=== PATIENT | female | born 1995 | race Caucasian/White ===

== ENCOUNTER 2020-04-21 10:40 | Inpatient (IN) | payer OTHER ==
[2020-04-21] MEDS ORDERED: TERBUTALINE 1 MG/ML VIAL SQ PRN (11:16)
[2020-04-21] MEDS ORDERED: METHYLERGONOVINE 0.2 MG/ML 1 ML AMP IM PRN (11:16)
[2020-04-21] MEDS ORDERED: CARBOPROST TROMETHAMINE 250 MCG/ML 1 ML AMP IM PRN (11:16)
[2020-04-21] MEDS ORDERED: LIDOCAINE 0.5% (PF) 5 MG/ML (50 ML SDV) SQ PRN (11:16)
[2020-04-21] MEDS ORDERED: OXYTOCIN 10 UNIT/ML 1 ML VIAL IM PRN (11:16)
[2020-04-21] MEDS ORDERED: LACTATED RINGERS 1,000 ML IV SCH (11:30)
[2020-04-21] MEDS ORDERED: OXYTOCIN 30 UNITS/500 ML NS 30 UNIT in SALINE 1 500ML.BAG IV SCH ×2 (11:30→18:45)
[2020-04-21] MEDS: CLINDAMYCIN 600 MG in DEXTROSE 5% IN WATER 50 ML IVPB SCH ×4 (12:40→20:24)
[2020-04-21 13:26] LABS: Basophils % (A) 0 %; Eosinophils # (A) 0.1 k/uL (0-0.7); Eosinophils % (A) 1 %; HCT 38.3 % (34.0-46.0); HGB 13.1 gm/dL (11.4-16.0); Lymphocytes # (A) 1.9 k/uL (1.0-4.8); Lymphocytes % (A) 11 %; MCH 32.7 pg (25.0-35.0); MCHC 34.3 g/dL (31.0-37.0); MCV 95.5 fL (80.0-100.0); Mean Platelet Volume 7.9; Monocytes # (A) 0.7 k/uL (0-1.0); Monocytes % (A) 4 %; Neutrophils % (A) 83 %; Platelet Count 266 k/uL (150-450); RBC 4.01 m/uL (3.80-5.40); RDW 12.9 % (11.5-15.5)
[2020-04-21] MEDS ORDERED: fentaNYL (PF) 50 MCG/ML 5 ML AMP ONE (16:07)
[2020-04-21] MEDS ORDERED: SODIUM CHLORIDE 0.9% 100 ML BAG ONE (16:07)
[2020-04-21] MEDS ORDERED: ROPIVACAINE 5MG/ML 20ML VIAL ONE (16:07)
--- NOTE | 2020-04-21 16:52 | P.HPOB ---
History of Present Illness H&P Date: 04/21/20 Chief Complaint: Spontaneous rupture of membranes 24-year-old presents at 39 weeks and 2 days with spontaneous rupture of membranes at 8:00 this morning. She presented on 1132 cm dilated, 90% effaced, and 0 station. She is eulalio irregularly. heart tones 135 with moderate variability and reactive. Review of Systems All systems: negative Constitutional: Denies chills, Denies fever Eyes: denies blurred vision, denies pain Ears, nose, mouth and throat: Denies headache, Denies sore throat Cardiovascular: Denies chest pain, Denies shortness of breath Respiratory: Denies cough Gastrointestinal: Denies abdominal pain, Denies diarrhea, Denies nausea, Denies vomiting Genitourinary: Denies dysuria, Denies hematuria Musculoskeletal: Denies myalgias Integumentary: Denies pruritus, Denies rash Neurological: Denies numbness, Denies weakness Psychiatric: Denies anxiety, Denies depression Endocrine: Denies fatigue, Denies weight change Past Medical History Additional Past Medical History / Comment(s): IBS, NEAR SIGHTED (GLASSES/CONTACTS). Subjective history: This is her first and she's had care with me. Her blood type is A+, amylase negative, rubella i mmune, RPR nonreactive, hepatitis B negative, toxoplasma negative, GBS positive. History of Any Multi-Drug Resistant Organisms: None Reported Past Surgical History: No Surgical Hx Reported Past Anesthesia/Blood Transfusion Reactions: No Reported Reaction Past Psychological History: Anxiety, Depression Additional Psychological History / Comment(s): SERROBRISEYDA Smoking Status: Never smoker Past Alcohol Use History: None Reported Past Drug Use History: None Reported - Past Family History Mother Family Medical History: Hypertension Father Family Medical History: Cancer Additional Family Medical History / Comment(s): ALCOHOLISM, CA OF COLON AND LIVER Medications and Allergies Home Medications Medication Instructions Recorded Confirmed Type Pnv,Calcium 72/Iron/Folic Acid 1 each PO DAILY 04/21/20 04/21/20 History [ Plus Tablet] QUEtiapine [SEROquel] 1 tablet PO WEEKLY 04/21/20 04/21/20 History Allergies Allergy/AdvReac Type Severity Reaction Status Date / Time Penicillins AdvReac Rash/Hives Verified 04/21/20 10:51 Exam Osteopathic Statement: *. No significant issues noted on an osteopathic structural exam other than those noted in the History and Physical/Consult. Vital Signs Temp Pulse Resp BP Pulse Ox 04/21/20 11:45 97.7 F 88 18 120/71 99 Intake and Output 04/21/20 04/21/20 04/21/20 06:59 14:59 22:59 Other: # Voids 2 # Bowel Movements 0 Weight 83.007 kg Heart: Regular rate and rhythm Lungs: Clear to auscultation bilaterally Abdomen: Soft, nontender Extremities: Negative Homans sign Results Result Diagrams: 04/21/20 12:15 Abnormal Lab Results - Last 24 Hours (Table) 04/21/20 Range/Units 12:15 WBC 17.0 H (3.8-10.6) k/uL Neutrophils # 14.0 H (1.3-7.7) k/uL Assessment and Plan (1) Spontaneous rupture of amniotic membranes Current Visit: Yes Status: Acute Code(s): [id number] - SNOMED Code(s): 310348423 Plan: 1. Admit to family place 2. Clindamycin for GBS prophylaxis 3. Pitocin augmentation 4. Anticipate normal vaginal delivery
[2020-04-21] MEDS ORDERED: LANOLIN CREAM 5 GM TUBE TOPICAL PRN (18:40)
[2020-04-21] MEDS ORDERED: ZOLPIDEM 5 MG TAB PO PRN (18:40)
[2020-04-21] MEDS ORDERED: BENZOCAINE/MENTHOL SPRAY 1 GM/SPRAY AEROSOL TOPICAL PRN (18:40)
[2020-04-21] MEDS ORDERED: diphenhydrAMINE 50 MG/ML 1 ML VIAL IVP PRN ×2 (18:40)
[2020-04-21] MEDS ORDERED: diphenhydrAMINE 25 MG CAP PO PRN (18:40)
[2020-04-21] MEDS ORDERED: SIMETHICONE 80 MG CHEWABLE PO PRN (18:40)
[2020-04-21] MEDS ORDERED: ACETAMINOPHEN TAB 325 MG TAB PO PRN (18:40)
[2020-04-21] MEDS ORDERED: diphenhydrAMINE 50 MG CAP PO PRN (18:40)
[2020-04-21] MEDS ORDERED: HYDROCORTISONE 2.5% RECTAL CREAM 30 GM TUBE RECTAL PRN (18:40)
--- NOTE | 2020-04-21 18:40 | P.PROBDLV ---
Vaginal Delivery Note - . Vaginal Delivery Note: 24-year-old presents at 39 weeks and 2 days with spontaneous rupture of membranes at 8:45 this morning. She presented on 1132 cm dilated, 90% effaced, and 0 station. She is eulalio irregularly. heart tones 135 with moderate variability and reactive. Clindamycin was started and then Pitocin augmentation was started. She was uncomfortable and did get an epidural. Her cervix is completely dilated at 1800. She pushed, viable female over int act perineum under epidural anesthesia at 1823. Head delivered OA, anterior shoulder delivered gentle downward guidance for by posterior shoulder and rest of body. Nose and mouth bulb suctioned, cord clamped and cut, placed on mother's abdomen. Apgars 9, 10, weight 6 lbs. 6 oz. Placenta delivered spontaneously, intact with three-vessel cord at 1825. Vagina, cervix, and perineum were inspected. First-degree midline laceration was repaired with 3-0 Vicryl. Estimated blood loss 250 mL. Mother and baby in stable condition.
[2020-04-21] MEDS: IBUPROFEN 600 MG TAB PO SCH (20:51)
[2020-04-21] MEDS: SENNOSIDES-DOCUSATE SODIUM 1 EACH TAB PO SCH (20:52)
[2020-04-22] MEDS: IBUPROFEN 600 MG TAB PO SCH ×4 (02:09→19:02)
[2020-04-22 05:26] LABS: Basophils % (A) 0 %; Eosinophils # (A) 0.1 k/uL (0-0.7); Eosinophils % (A) 1 %; HCT 37.7 % (34.0-46.0); Lymphocytes # (A) 1.9 k/uL (1.0-4.8); Lymphocytes % (A) 11 %; MCH 33.2 pg (25.0-35.0); MCHC 34.5 g/dL (31.0-37.0); MCV 96.2 fL (80.0-100.0); Mean Platelet Volume 7.7; Monocytes # (A) 0.7 k/uL (0-1.0); Monocytes % (A) 4 %; Neutrophils # (A) 14.3 k/uL (1.3-7.7); Neutrophils % (A) 83 %; Platelet Count 231 k/uL (150-450); RBC 3.92 m/uL (3.80-5.40); RDW 13.1 % (11.5-15.5); WBC 17.2 k/uL (3.8-10.6)
[2020-04-22] MEDS: SENNOSIDES-DOCUSATE SODIUM 1 EACH TAB PO SCH (07:54)
--- NOTE | 2020-04-22 08:17 | P.DS ---
Providers Date of admission: 04/21/20 11:20 Expected date of discharge: 04/22/20 Attending physician: Jane Brennan Primary care physician: Stated None - Discharge Diagnosis(es) (1) Spontaneous rupture of amniotic membranes Current Visit: Yes Status: Resolved (2) Normal vaginal delivery Current Visit: Yes Status: Acute Hospital Course: Patient presented with spontaneous rupture of membranes at 39 weeks. She had and Clindamycin for GBS prophylaxis and Pitocin augmentation. Patient underwent a normal vaginal delivery. course was uncomplicated. She denies nausea, vomiting, chest pain, shortness of breath or calf pain. Her lochia is decreasing. She'll be discharged home day #1 in stable condition to follow-up with me in 6 weeks. Plan - Discharge Summary New Discharge Prescriptions: New Ibuprofen [Motrin] 600 mg PO Q6H #30 tab No Action Pnv,Calcium 72/Iron/Folic Acid [ Plus Tablet] 1 each PO DAILY QUEtiapine [SEROquel] 1 tablet PO WEEKLY Discharge Medication List Pnv,Calcium 72/Iron/Folic Acid [ Plus Tablet] 1 each PO DAILY 04/21/20 [History] QUEtiapine [SEROquel] 1 tablet PO WEEKLY 04/21/20 [History] Ibuprofen [Motrin] 600 mg PO Q6H #30 tab 04/22/20 [Rx] Follow up Appointment(s)/Referral(s): Jane Brennan DO [Doctor of Osteopathic Medicine] - 6 Weeks Discharge Disposition: HOME SELF-CARE
[2020-04-22 08:33] VITALS: RESP 18
[2020-04-22 17:13] VITALS: BP 126/76; PULSE 71; TEMP 98.2
== END 2020-04-22 19:08 | disposition home or self-care (01) | DRG 807 ==
LOC: FBPOP 10:40 → 4FBP 11:20
PROVIDERS: ADMIT Obstetrics & Gynecology; ATTEND Obstetrics & Gynecology
PROC: 3E0R3BZ Introduction of Anesthetic Agent into Spinal Canal, Percutaneous Approach (ICD-10-PCS; principal; 2020-04-21)
PROC: 0HQ9XZZ Repair Perineum Skin, External Approach (ICD-10-PCS; principal; 2020-04-21)
PROC: 00HU33Z Insertion of Infusion Device into Spinal Canal, Percutaneous Approach (ICD-10-PCS; principal; 2020-04-21)
PROC: 10E0XZZ Delivery of Products of Conception, External Approach (ICD-10-PCS; principal; 2020-04-21)
DX: O99.824 Streptococcus B carrier state complicating childbirth (principal); Z37.0 Single live birth; O99.344 Other mental disorders complicating childbirth; F32.9 Major depressive disorder, single episode, unspecified; F41.9 Anxiety disorder, unspecified; O70.0 First degree perineal laceration during delivery; K58.9 Irritable bowel syndrome, unspecified; Z3A.39 39 weeks gestation of pregnancy; Z79.899 Other long term (current) drug therapy; Z97.3 Presence of spectacles and contact lenses; Z88.0 Allergy status to penicillin; Z80.0 Family history of malignant neoplasm of digestive organs; Z81.1 Family history of alcohol abuse and dependence; Z82.49 Family history of ischemic heart disease and other diseases of the circulatory system
CPT/HCPCS: 59025; 84112; 85025; 86850; 86900; 86901; 99213

== ENCOUNTER 2022-01-04 06:15 | Inpatient (IN) | payer BC, OTHER ==
[2022-01-04] MEDS ORDERED: TERBUTALINE 1 MG/ML VIAL SQ PRN (06:53)
[2022-01-04] MEDS ORDERED: LIDOCAINE 0.5% (PF) 5 MG/ML (50 ML SDV) SQ PRN (06:53)
[2022-01-04] MEDS: LACTATED RINGERS 1,000 ML IV SCH ×2 (06:57→19:20)
[2022-01-04] MEDS ORDERED: OXYTOCIN 30 UNITS/500 ML NS 30 UNIT in SALINE 1 500ML.BAG IV SCH ×2 (07:00→13:15)
[2022-01-04 07:26] LABS: Basophils % (A) 0 %; Eosinophils # (A) 0.2 k/uL (0-0.7); Eosinophils % (A) 1 %; HCT 37.3 % (34.0-46.0); HGB 12.9 gm/dL (11.4-16.0); Lymphocytes # (A) 2.1 k/uL (1.0-4.8); Lymphocytes % (A) 19 %; MCH 32.4 pg (25.0-35.0); MCHC 34.6 g/dL (31.0-37.0); MCV 93.8 fL (80.0-100.0); Mean Platelet Volume 8.3; Monocytes # (A) 0.4 k/uL (0-1.0); Monocytes % (A) 3 %; Neutrophils # (A) 8.3 k/uL (1.3-7.7); Neutrophils % (A) 73 %; Platelet Count 279 k/uL (150-450); RBC 3.98 m/uL (3.80-5.40); RDW 13.8 % (11.5-15.5); WBC 11.4 k/uL (3.8-10.6)
--- NOTE | 2022-01-04 07:40 | P.HPOB ---
History of Present Illness H&P Date: 01/04/22 Chief Complaint: induction of labor 26 year old presents at 39 weeks 2 days for induction of labor. Her cervix is 1-2/70/-2. she is eulalio irregularly. heart tones 140 with moderate variability and reactive. Review of Systems All systems: negative Constitutional: Denies chills, Denies fever Eyes: denies blurred vision, denies pain Ears, nose, mouth and throat: Denies headache, Denies sore throat Cardiovascular: Denies chest pain, Denies shortness of breath Respiratory: Denies cough Gastrointestinal: Denies abdominal pain, Denies diarrhea, Denies nausea, Denies vomiting Genitourinary: Denies dysuria, Denies hematuria Musculoskeletal: Denies myalgias Integumentary: Denies pruritus, Denies rash Neurological: Denies numbness, Denies weakness Psychiatric: Denies anxiety, Denies depression Endocrine: Denies fatigue, Denies weight change Past Medical History Additional Past Medical History / Comment(s): IBS, NEAR SIGHTED (GLASSES/CONTACTS). Obstetrical history: First was a vaginal delivery. This is her second and she's had care with me. Her blood type is A+, abs negative, rubella immune, RPR nonreactive, hepatitis B negative, toxoplasma negative, GBS neg. History of Any Multi-Drug Resistant Organisms: None Reported Past Surgical History: No Surgical Hx Reported Past Anesthesia/Blood Transfusion Reactions: No Reported Reaction Past Psychological History: Anxiety, Depression Additional Psychological History / Comment(s): SERROQUEL Smoking Status: Never smoker Past Alcohol Use History: None Reported Past Drug Use History: None Reported - Past Family History Mother Family Medical History: Hypertension Father Family Medical History: Cancer Additional Family Medical History / Comment(s): ALCOHOLISM, CA OF COLON AND LIVE R Medications and Allergies Home Medications Medication Instructions Recorded Confirmed Type Vit No.180/Iron/Folic 1 each PO DAILY 04/21/20 01/04/22 History [ Plus Tablet] Sertraline [Zoloft] 1 tab PO DAILY 01/04/22 01/04/22 History buPROPion XL [Wellbutrin XL] 1 tab PO DAILY 01/04/22 01/04/22 History Allergies Allergy/AdvReac Type Severity Reaction Status Date / Time Penicillins AdvReac Rash/Hives Verified 04/21/20 10:51 Exam Osteopathic Statement: *. No significant issues noted on an osteopathic structural exam other than those noted in the History and Physical/Consult. Intake and Output 01/03/22 01/04/22 01/04/22 22:59 06:59 14:59 Other: Weight 87.09 kg Heart: Regular rate and rhythm Lungs: Clear to auscultation bilaterally Abdomen: Soft, nontender Extremities: Negative Homans sign Results Result Diagrams: 01/04/22 06:50 Abnormal Lab Results - Last 24 Hours (Table) 01/04/22 Range/Units 06:50 WBC 11.4 H (3.8-10.6) k/uL Neutrophils # 8.3 H (1.3-7.7) k/uL Assessment and Plan (1) Encounter for induction of labor Current Visit: Yes Status: Acute Code(s): Z34.90 - ENCNTR FOR SUPRVSN OF NORMAL , UNSP, UNSP TRIMESTER SNOMED Code(s): 699852510 (2) Two vessel umbilical cord in yu , antepartum Current Visit: Yes Status: Acute Code(s): O09.899 - SUPERVISION OF OTHER HIGH RISK PREGNANCIES, UNSP TRIMESTER SNOMED Code(s): 464805497 Plan: 1. induction of labor with amniotomy and pitocin 2. anticipate normal vaginal delivery
[2022-01-04] MEDS ORDERED: SODIUM CHLORIDE 0.9% 100 ML BAG ONE (11:41)
[2022-01-04] MEDS ORDERED: fentaNYL (PF) 50 MCG/ML 5 ML AMP ONE (11:41)
[2022-01-04] MEDS ORDERED: ROPIVACAINE 5 MG/ML 20 ML AMPULE ONE (11:41)
--- NOTE | 2022-01-04 13:00 | P.PROBDLV ---
Vaginal Delivery Note - . Vaginal Delivery Note: 26 year old presents at 39 weeks 2 days for induction of labor. Her cervix is 1-2/70/-2. she is eulalio irregularly. heart tones 140 with moderate variability and reactive. Pitocin started and amniotomy performed at 7:31 AM clear fluid noted. When she was uncomfortable patient did get an epidural. Her cervix was completely dilated at 1242. She pushed and delivered a viable female infant over intact perineum under epidural anesthesia at 12:49 pm. Head delivered OA, anterior shoulder delivered gentle downward guidance with posterior shoulder and rest of body. Nose and mouth bulb suctioned, cord clamped and cut, placed mother's abdomen. Apgars 9, 9, weight 6 pounds 10.9 ounces. Placenta delivered spontaneously, intact with three-vessel cord at 1251. Vagina, cervix, perineum inspected. No lacerations noted. Estimated blood loss 50 mL. Mother and baby in stable condition.
[2022-01-04] MEDS ORDERED: HYDROCORTISONE 2.5% RECTAL CREAM 30 GM TUBE RECTAL PRN (13:01)
[2022-01-04] MEDS ORDERED: diphenhydrAMINE 50 MG/ML 1 ML VIAL IVP PRN ×2 (13:01)
[2022-01-04] MEDS ORDERED: BENZOCAINE/MENTHOL SPRAY 1 GM/SPRAY AEROSOL TOPICAL PRN (13:01)
[2022-01-04] MEDS ORDERED: diphenhydrAMINE 25 MG CAP PO PRN (13:01)
[2022-01-04] MEDS ORDERED: SIMETHICONE 80 MG CHEWABLE PO PRN (13:01)
[2022-01-04] MEDS ORDERED: LANOLIN CREAM 5 GM TUBE TOPICAL PRN (13:01)
[2022-01-04] MEDS ORDERED: ZOLPIDEM 5 MG TAB PO PRN (13:01)
[2022-01-04] MEDS ORDERED: diphenhydrAMINE 50 MG CAP PO PRN (13:01)
[2022-01-04] MEDS: buPROPion XL 150 MG TAB.ER.24H PO SCH (14:37)
[2022-01-04] MEDS: IBUPROFEN 600 MG TAB PO PRN (18:53)
[2022-01-04] MEDS: SENNOSIDES-DOCUSATE SODIUM 1 EACH TAB PO SCH (20:08)
[2022-01-04] MEDS: SERTRALINE 100 MG TAB PO SCH (22:16)
[2022-01-04] MEDS: ACETAMINOPHEN TAB 325 MG TAB PO PRN (22:17)
[2022-01-05] MEDS: LACTATED RINGERS 1,000 ML IV SCH ×2 (00:49→09:29)
[2022-01-05] MEDS: IBUPROFEN 600 MG TAB PO PRN ×2 (01:06→12:47)
[2022-01-05] MEDS: ACETAMINOPHEN TAB 325 MG TAB PO PRN ×2 (04:02→08:08)
[2022-01-05 06:41] LABS: Basophils % (A) 0 %; Eosinophils # (A) 0.2 k/uL (0-0.7); Eosinophils % (A) 2 %; HCT 38.2 % (34.0-46.0); HGB 13.2 gm/dL (11.4-16.0); Lymphocytes # (A) 2.2 k/uL (1.0-4.8); Lymphocytes % (A) 19 %; MCH 32.8 pg (25.0-35.0); MCHC 34.4 g/dL (31.0-37.0); MCV 95.4 fL (80.0-100.0); Mean Platelet Volume 7.9; Monocytes # (A) 0.4 k/uL (0-1.0); Monocytes % (A) 4 %; Neutrophils # (A) 8.7 k/uL (1.3-7.7); Neutrophils % (A) 74 %; Platelet Count 247 k/uL (150-450); RBC 4.01 m/uL (3.80-5.40); RDW 13.5 % (11.5-15.5); WBC 11.7 k/uL (3.8-10.6)
--- NOTE | 2022-01-05 08:00 | P.DS ---
Providers Date of admission: 01/04/22 06:39 Expected date of discharge: 01/05/22 Attending physician: Jane Brennan Primary care physician: Stated None - Discharge Diagnosis(es) (1) Encounter for induction of labor Current Visit: Yes Status: Resolved (2) Two vessel umbilical cord in yu , antepartum Current Visit: Yes Status: Resolved (3) Normal vaginal delivery Current Visit: No Status: Acute Hospital Course: Patient presented for induction of labor. She underwent a normal vaginal delivery. course was uncomplicated. She denies nausea, vomiting, chest pain, shortness of breath or any calf pain. Patient will be discharged home day #1 in stable condition to follow-up with me in 6 weeks. Plan - Discharge Summary New Discharge Prescriptions: New Ibuprofen [Motrin] 600 mg PO Q6HR PRN #30 tab PRN Reason: Mild Pain (Scale 1 To 3) No Action Vit No.180/Iron/Folic [ Plus Tablet] 1 each PO DAILY buPROPion XL [Wellbutrin XL] 1 tab PO DAILY Sertraline [Zoloft] 1 tab PO DAILY Discharge Medication List Vit No.180/Iron/Folic [ Plus Tablet] 1 each PO DAILY 04/21/20 [History] Sertraline [Zoloft] 1 tab PO DAILY 01/04/22 [History] buPROPion XL [Wellbutrin XL] 1 tab PO DAILY 01/04/22 [History] Ibuprofen [Motrin] 600 mg PO Q6HR PRN #30 tab 01/05/22 [Rx] Follow up Appointment(s)/Referral(s): Jane Brennan DO [Doctor of Osteopathic Medicine] - 6 Weeks Discharge Disposition: HOME SELF-CARE
[2022-01-05] MEDS: SENNOSIDES-DOCUSATE SODIUM 1 EACH TAB PO SCH (08:08)
[2022-01-05] MEDS: buPROPion XL 150 MG TAB.ER.24H PO SCH (08:10)
[2022-01-05 09:28] VITALS: PULSE 77
[2022-01-05] MEDS: SERTRALINE 100 MG TAB PO SCH (09:30)
[2022-01-05 13:53] VITALS: BP 128/84; RESP 17; TEMP 98.2
== END 2022-01-05 13:56 | disposition home or self-care (01) | DRG 807 ==
LOC: 4FBP 06:39
PROVIDERS: ADMIT Obstetrics & Gynecology; ATTEND Obstetrics & Gynecology
PROC: 10E0XZZ Delivery of Products of Conception, External Approach (ICD-10-PCS; principal; 2022-01-04)
PROC: 4A0HXCZ Measurement of Products of Conception, Cardiac Rate, External Approach (ICD-10-PCS; 2022-01-04)
PROC: 10907ZC Drainage of Amniotic Fluid, Therapeutic from Products of Conception, Via Natural or Artificial Opening (ICD-10-PCS; 2022-01-04)
PROC: 3E033VJ Introduction of Other Hormone into Peripheral Vein, Percutaneous Approach (ICD-10-PCS; 2022-01-04)
DX: O69.89X0 Labor and delivery complicated by other cord complications, not applicable or unspecified (principal); Z37.0 Single live birth; O99.62 Diseases of the digestive system complicating childbirth; K58.9 Irritable bowel syndrome, unspecified; F32.A Depression, unspecified; O99.344 Other mental disorders complicating childbirth; F41.9 Anxiety disorder, unspecified; Z3A.39 39 weeks gestation of pregnancy; Z88.0 Allergy status to penicillin
CPT/HCPCS: 85025; 86850; 86900; 86901

== ENCOUNTER 2024-02-18 10:52 | Outpatient (CLI) | payer BC ==
[2024-02-18 14:34] VITALS: BP 129/68; PULSE 95; RESP 16; TEMP 96.5
--- NOTE | 2024-03-09 15:53 | P.MSEPDOC ---
Presenting Problems - Arrival Data Date of Arrival on Unit: 02/18/24 Time of Arrival on Unit: 10:52 Mode of Transport: Ambulatory - Complaint OB-Reason for Admission/Chief Complaint: Rule Out SROM Medical History - Information : 3 Para: 2 Term: 2 : 0 Abortions: Spontaneous or Elective: 0 Number of Living Children: 2 - Gestational Age Gestational Age by TANI (wks/days): 38 Weeks and 1 Days Review of Systems - Review of Systems Constitutional: No problems Breast: No problems ENT: No problems Cardiovascular: No problems Respiratory: No problems Gastrointestinal: No problems Genitourinary: No problems Musculoskeletal: No problems Neurological: No problems Skin: No problems Vital Signs - Temperature Temperature: 96.5 F Temperature Source: Temporal Artery Scan - Pulse Right Sitting Pulse Rate: 95 Pulse Assessment Method: Automatic Cuff - Respirations Respiratory Rate: 16 Oxygen Delivery Method: Room Air O2 Sat by Pulse Oximetry: 98 - Blood Pressure Right Arm Blood Pressure: 129/68 Blood Pressure Mean: 88 Blood Pressure Source: Automatic Cuff Medical Screen Scoring - Cervical Exam Dilation (cm): 1.5 Effacement (%): 70 Station: -2 Membranes: Intact - Uterine Contractions Frequency From (mins): 1 Frequency To (mins): 5 Duration From (seconds): 40 Duration To (seconds): 70 Intensity: Mild Resting: Soft to palpation - Assessment - Baby A Baseline FHR: 130 Heart Rate - NICHD Category: Category I (Normal) NST: Reactive Physician Notification - Physician Notified Physician Notified Date: 02/18/24 Physician Notified Time: 13:48 Physician: Amber Alonzo Order Received: Yes (d/c home) Maternal Triage Index - Non-Urgent/Priority 4 Non-Urgent Priority 4: Yes Criteria Met for Priority 4: reactive nst with occasional variable, regular mild contractions, vag exam 1.5cm/70%/-2, amnisure negative Disposition - Disposition OB Disposition: Discharge to home Discharge Date: 02/18/24 Discharge Time: 13:58 I agree with the RN Medical Screening Exam: Yes Physician's MSE Comment: I have neither seen nor examined the patient Case reviewed; plan agreed upon as documented in EMR&OBIX.: Yes Diagnosis: FALSE LABOR AT OR AFTER 37 COMPLETED WEEKS OF GESTATION
== END 2024-02-18 13:58 | disposition home or self-care (01) ==
LOC: FBPOP 10:52
PROVIDERS: ATTEND Obstetrics & Gynecology
DX: O47.1 False labor at or after 37 completed weeks of gestation (principal); Z3A.38 38 weeks gestation of pregnancy; Z88.0 Allergy status to penicillin
CPT/HCPCS: 59025; 84112; 99213

== ENCOUNTER 2024-02-24 06:05 | Inpatient (IN) | payer BC ==
[2024-02-24] MEDS ORDERED: TERBUTALINE 1 MG/ML VIAL SQ PRN (06:23)
[2024-02-24] MEDS ORDERED: TRANEXAMIC 1,000 MG/100ML-NACL 1,000 MG in EMPTY BAG 1 BAG IV PRN (06:23)
[2024-02-24] MEDS ORDERED: CARBOPROST TROMETHAMINE 250 MCG/ML 1 ML AMP IM PRN (06:23)
[2024-02-24] MEDS ORDERED: OXYTOCIN 10 UNIT/ML 1 ML VIAL IM PRN (06:23)
[2024-02-24] MEDS ORDERED: METHYLERGONOVINE 0.2 MG/ML 1 ML AMP IM PRN (06:23)
[2024-02-24] MEDS ORDERED: miSOPROStoL 200 MCG TAB RECTAL PRN (06:23)
[2024-02-24] MEDS ORDERED: LIDOCAINE 0.5% (PF) 5 MG/ML (50 ML SDV) SQ PRN (06:23)
[2024-02-24] MEDS ORDERED: miSOPROStoL 200 MCG TAB PO PRN (06:23)
[2024-02-24] MEDS: LACTATED RINGERS 1,000 ML IV SCH (06:44)
[2024-02-24] MEDS: OXYTOCIN 30 UNITS/500 ML NS 30 UNIT in SALINE 1 500ML.BAG IV SCH (06:45)
[2024-02-24 07:21] LABS: Basophils % (A) 0 %; Eosinophils # (A) 0.1 k/uL (0-0.7); Eosinophils % (A) 1 %; HCT 36.7 % (34.0-46.0); HGB 12.9 gm/dL (11.4-16.0); Lymphocytes # (A) 2.1 k/uL (1.0-4.8); Lymphocytes % (A) 18 %; MCH 33.2 pg (25.0-35.0); MCHC 35.2 g/dL (31.0-37.0); MCV 94.3 fL (80.0-100.0); Mean Platelet Volume 7.8; Monocytes # (A) 0.4 k/uL (0-1.0); Monocytes % (A) 3 %; Neutrophils # (A) 9.2 k/uL (1.3-7.7); Neutrophils % (A) 76 %; Platelet Count 298 k/uL (150-450); RBC 3.89 m/uL (3.80-5.40); RDW 13.8 % (11.5-15.5); WBC 12.1 k/uL (3.8-10.6)
[2024-02-24] MEDS ORDERED: SODIUM CHLORIDE 0.9% 250 ML BAG ONE (09:30)
[2024-02-24] MEDS ORDERED: fentaNYL (PF) 50 MCG/ML 5 ML AMP ONE (09:30)
[2024-02-24] MEDS ORDERED: ROPIVACAINE 5 MG/ML 30 ML VIAL ONE (09:30)
[2024-02-24] MEDS ORDERED: ZOLPIDEM 5 MG TAB PO PRN (12:12)
[2024-02-24] MEDS ORDERED: SIMETHICONE 80 MG CHEWABLE PO PRN (12:12)
[2024-02-24] MEDS ORDERED: diphenhydrAMINE 50 MG CAP PO PRN (12:12)
[2024-02-24] MEDS ORDERED: diphenhydrAMINE 25 MG CAP PO PRN (12:12)
[2024-02-24] MEDS ORDERED: BENZOCAINE/MENTHOL SPRAY 1 GM/SPRAY AEROSOL TOPICAL PRN (12:12)
[2024-02-24] MEDS ORDERED: LANOLIN CREAM 1 GM TUBE TOPICAL PRN (12:12)
--- NOTE | 2024-02-24 17:03 | P.HPOB ---
History of Present Illness H&P Date: 02/24/24 Chief Complaint: induction of labor 28-year-old G3, P2 presents at 39 weeks for induction of labor. Cervix is 3 cm dilated, 70% effaced, -2 station. She is eulalio irregularly. heart tones 145 with moderate variability and reactive. Review of Systems All systems: negative Constitutional: Denies chills, Denies fever Eyes: denies blurred vision, denies pain Ears, nose, mouth and throat: Denies headache, Denies sore throat Cardiovascular: Denies chest pain, Denies shortness of breath Respiratory: Denies cough Gastrointestinal: Denies abdominal pain, Denies diarrhea, Denies nausea, Denies vomiting Genitourinary: Denies dysuria, Denies hematuria Musculoskeletal: Denies myalgias Integumentary: Denies pruritus, Denies rash Neurological: Denies numbness, Denies weakness Psychiatric: Denies anxiety, Denies depression Endocrine: Denies fatigue, Denies weight change Past Medical History Past Medical History: No Reported History Additional Past Medical History / Comment(s): IBS, NEAR SIGHTED (GLASSES/CONTACTS) History of Any Multi-Drug Resistant Organisms: None Reported Past Surgical History: No Surgical Hx Reported Past Anesthesia/Blood Transfusion Reactions: No Reported Reaction Past Psychological History: Anxiety, Depression Additional Psychological History / Comment(s): SERROQUEL Smoking Status: Never smoker Past Alcohol Use History: None Reported Past Drug Use History: None Reported - Past Family History Mother Family Medical History: Hypertension Father Family Medical History: Cancer Additional Family Medical History / Comment(s): ALCOHOLISM, CA OF COLON AND LIVER Medications and Allergies Home Medications Medication Instructions Recorded Confirmed Type Vit No.180/Iron/Folic 1 each PO DAILY 04/21/20 02/24/24 History [ Plus Tablet] Sertraline [Zoloft] 1.5 tab PO DAILY 01/04/22 02/24/24 History RX: Acyclovir [Zovirax] 500 mg PO DAILY 02/18/24 02/24/24 History Allergies Allergy/AdvReac Type Severity Reaction Status Date / Time Penicillins AdvReac Rash/Hives Verified 02/18/24 11:23 Exam Osteopathic Statement: *. No significant issues noted on an osteopathic struct ural exam other than those noted in the History and Physical/Consult. Vital Signs Temp Pulse Resp BP Pulse Ox 02/24/24 16:00 97.6 F 74 16 117/75 98 02/24/24 11:45 96 16 119/64 02/24/24 11:30 98 16 111/60 02/24/24 11:15 82 16 115/71 02/24/24 11:00 90 16 131/69 02/24/24 10:45 92 16 118/76 02/24/24 10:30 106 H 16 119/70 02/24/24 10:15 98 16 108/73 02/24/24 10:00 98.2 F 92 16 139/62 02/24/24 06:18 97.6 F 86 16 112/69 96 Intake and Output 02/24/24 02/24/24 02/24/24 06:59 14:59 22:59 Output Total 133 Balance -133 Output: Output, Quantitative 133 Blood Loss Other: # Voids 1 1 Weight 86.183 kg Heart: Regular rate and rhythm Lungs: Clear to auscultation bilaterally Abdomen: Soft, nontender Extremities: Negative Homans sign Results Result Diagrams: 02/24/24 06:23 Abnormal Lab Results - Last 24 Hours (Table) 02/24/24 Range/Units 06:23 WBC 12.1 H (3.8-10.6) k/uL Neutrophils # 9.2 H (1.3-7.7) k/uL Assessment and Plan (1) Elective induction of labor planned Current Visit: Yes Status: Acute Code(s): [id number] - SNOMED Code(s): 107875300 Plan: 1. Induction of labor with amniotomy and Pitocin 2. Anticipate normal vaginal delivery
--- NOTE | 2024-02-24 17:05 | P.PROBDLV ---
Vaginal Delivery Note - . Vaginal Delivery Note: 28-year-old G3, P2 presents at 39 weeks for induction of labor. Cervix is 3 cm dilated, 70% effaced, -2 station. She is eulalio irregularly. heart tones 145 with moderate variability and reactive. Pitocin was started and amniotomy performed at 7:26 AM, clear fluid noted. Patient got uncomfortable and requested an epidural and as soon as she got it she was completely dilated. She pushed, delivered a viable female infant over intact perineum at 9:56 AM. Head delivered OA, anterior shoulder delivered gentle downward guidance followed posterior shoulder and rest of body. Nose and mouth bulb suction, clear ventricle, placed on mother's abdomen. Apgars 7, 9, weight 7 pounds 2 ounces. Placenta delivered spontaneously, intact with three-vessel cord at 9:59 AM. Vagina, cervix, perineum inspected. No lacerations noted. Estimated blood loss 100 mL. Mother and baby in stable condition.
[2024-02-24] MEDS: ACETAMINOPHEN TAB 500 MG TAB PO SCH (18:23)
[2024-02-24] MEDS: IBUPROFEN 800 MG TAB PO SCH (20:42)
[2024-02-24] MEDS: SENNOSIDES-DOCUSATE SODIUM 1 EACH TAB PO SCH (20:42)
[2024-02-25 05:30] LABS: Basophils % (A) 0 %; Eosinophils # (A) 0.1 k/uL (0-0.7); Eosinophils % (A) 1 %; HCT 38.7 % (34.0-46.0); HGB 13.4 gm/dL (11.4-16.0); Lymphocytes % (A) 14 %; MCH 33.3 pg (25.0-35.0); MCHC 34.7 g/dL (31.0-37.0); Mean Platelet Volume 7.6; Monocytes # (A) 0.5 k/uL (0-1.0); Monocytes % (A) 4 %; Neutrophils # (A) 11.2 k/uL (1.3-7.7); Neutrophils % (A) 79 %; Platelet Count 235 k/uL (150-450); RBC 4.03 m/uL (3.80-5.40); RDW 13.9 % (11.5-15.5); WBC 14.1 k/uL (3.8-10.6)
[2024-02-25 08:36] VITALS: BP 124/82; PULSE 85; RESP 16; TEMP 97.1
--- NOTE | 2024-02-25 11:34 | P.DS ---
Providers Date of admission: 02/24/24 06:05 Expected date of discharge: 02/25/24 Attending physician: Jane Bernnan Primary care physician: Jane Brennan - Discharge Diagnosis(es) (1) Elective induction of labor planned Current Visit: Yes Status: Resolved (2) Normal vaginal delivery Current Visit: No Status: Acute Hospital Course: Presented for induction of labor. She underwent a normal vaginal delivery. course has been uneventful. Denies nausea, vomiting, chest pain, shortness of breath or calf pain. Patient will be discharged home day #1 in stable condition to follow-up with me in 6 weeks. Plan - Discharge Summary New Discharge Prescriptions: No Action Vit No.180/Iron/Folic [ Plus Tablet] 1 each PO DAILY Sertraline [Zoloft] 1.5 tab PO DAILY Acyclovir [Zovirax] 500 mg PO DAILY Discharge Medication List Vit No.180/Iron/Folic [ Plus Tablet] 1 each PO DAILY 04/21/20 [History] Sertraline [Zoloft] 1.5 tab PO DAILY 01/04/22 [History] Acyclovir [Zovirax] 500 mg PO DAILY 02/18/24 [History] Follow up Appointment(s)/Referral(s): Jane Brennan DO [Primary Care Provider] - 6 Weeks Discharge Disposition: HOME SELF-CARE
== END 2024-02-25 12:05 | disposition home or self-care (01) | DRG 807 ==
LOC: 4FBP 06:05
PROVIDERS: ADMIT Obstetrics & Gynecology; ATTEND Obstetrics & Gynecology
PROC: 10E0XZZ Delivery of Products of Conception, External Approach (ICD-10-PCS; principal; 2024-02-24)
PROC: 10907ZC Drainage of Amniotic Fluid, Therapeutic from Products of Conception, Via Natural or Artificial Opening (ICD-10-PCS; 2024-02-24)
DX: O99.344 Other mental disorders complicating childbirth (principal); Z37.0 Single live birth; F32.A Depression, unspecified; F41.9 Anxiety disorder, unspecified; Z3A.39 39 weeks gestation of pregnancy
CPT/HCPCS: 85025; 86850; 86900; 86901